=== PATIENT | female | born 1990 | race Caucasian/White ===

== ENCOUNTER 2018-10-15 09:38 | Emergency (ER) | payer OTHER ==
[~2018-10-15] VITALS: Ht 152.4 cm; Wt 97.1 kg
[~2018-10-15 09:38] MED LIST: ADVIL200 M1 PO; NOHOMEMEDICATIONS; NORCO 5-325 TA1 EACH PO; TRINATE TABLET1 TAB PO; VITAMIN C500 M1 PO
[2018-10-15] MEDS ORDERED: TESSALON PERLE100 MG PO (10:35)
[2018-10-15] MEDS ORDERED: ZOFRAN ODT4 MG PO (10:35)
[2018-10-15] MEDS ORDERED: IBUPROFEN 600600 M1 PO (10:35)
[2018-10-15] MEDS ORDERED: PHENERGAN 25 MG25 M1 PO (10:55)
[2018-10-15 11:24] LABS: ABSOLUTE NEUTROPHILS 14.8 thou/uL (1.4-8.2); BASOPHILS 0.3 % (0.0-2.0); EOSINOPHILS 0.1 % (0.0-3.0); HEMOGLOBIN 15.1 gm/dL (12.0-15.0); MCHC 33.5 g/dL (28.0-37.0); MCV 89.5 fL (80.0-100.0); MONOCYTES 3.3 % (1.0-8.0); PLATELET COUNT 388 thou/uL (150-400); POLYS 91.3 % (36.0-66.0); RBC 5.03 mil/uL (4.20-5.00); RDW 13.3 % (10.5-14.5); WBC 16.2 thou/uL (4.0-11.0)
[2018-10-15 11:28] LABS: CALCIUM 9.4 mg/dL (8.5-10.1); CREATININE 0.7 mg/dL (0.6-1.0); POTASSIUM 3.7 mmol/L (3.5-5.1)
[2018-10-15 12:45] VITALS: BP 123/98
== END 2018-10-15 12:45 | disposition home or self-care (01) ==
LOC: ER 09:38
PROVIDERS: Nurse Practitioner Family
DX: B34.9 Viral infection, unspecified (principal)